=== PATIENT | female | born 1960 | race Caucasian/White ===

== ENCOUNTER → 2016-08-31 | Day surgery (SDC) | payer BC ==
[~2016-08-31] MED LIST: ALEVE220 M1 PO; AMLODIPINE-VAL1 EAC3 PO; AMOXICILLIN875 MG PO; DRAMAMINE LESS25 MG PO; HYDROCHLOROTHIA25 MG PO; MONTELUKAST SOD10 MG PO; NORCO 5-325 TA1 EACH PO
== END | disposition home or self-care (01) ==
LOC: OR 07:38
PROVIDERS: Orthopaedic Surgery
PROC: [UNRECOGNIZED PROCEDURE] (principal; 2016-08-31 15:30)
DX: M67.441 Ganglion, right hand (principal); I10 Essential (primary) hypertension; G43.909 Migraine, unspecified, not intractable, without status migrainosus; M19.90 Unspecified osteoarthritis, unspecified site; Z83.3 Family history of diabetes mellitus; Z82.49 Family history of ischemic heart disease and other diseases of the circulatory system; Z82.0 Family history of epilepsy and other diseases of the nervous system; Z79.899 Other long term (current) drug therapy; Z90.49 Acquired absence of other specified parts of digestive tract; Z90.710 Acquired absence of both cervix and uterus; Z96.652 Presence of left artificial knee joint; Z98.890 Other specified postprocedural states
CPT/HCPCS: J1100; J2250; J2405; J2795; J3010; J7120